=== PATIENT | female | born 1990 ===

== ENCOUNTER 2018-03-01 07:28 | Emergency (ER) | payer OTHER ==
--- NOTE | 2018-03-01 08:07 | UC ---
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 PATIENT DID NOT FALL DOWN. NO LOC. HAS A SLIGHT HEADACHE AT THE SITE OF IMPACT. MILD NECK PAIN. NO NAUSEA, DIZZINESS, VISUAL DISTURBANCES. NO BREAK IN THE SKIN. - History Of Current Complaint Chief Complaint: UCHeadInjury Stated Complaint: HEAD INJURY Time Seen by Provider: 03/01/18 07:44 Hx Obtained From: Patient Hx Last Menstrual Period: 02/22/18 Onset/Duration: Sudden Onset, Lasting Hours, Still Present Severity Currently: Moderate Severity Initially: Mild Pain Intensity: 1 Pain Scale Used: 0-10 Numeric Character: Sharp Aggravating Factor(s): Nothing Alleviating Factor(s): Other - IBUPROFEN Associated Signs And Symptoms: Negative: LOC (Time In Secs./Mins/Hrs), Confusion , Memory Loss, Seizure, Epistaxis, Dental Malocclusion, Nausea, Vomiting - Allergies/Home Medications Allergies/Adverse Reactions: Allergies Allergy/AdvReac Type Severity Reaction Status Date / Time sulfamethoxazole Allergy Rash Verified 03/01/18 07:41 [From Bactrim] trimethoprim [From Bactrim] Allergy Rash Verified 03/01/18 07:41 PMH/Surg Hx/FS Hx/Imm Hx Previously Healthy: Yes - Surgical History Surgical History: Yes Surgery Procedure, Year, and Place: wisdome teeth removed - Family History Known Family History: Positive: Diabetes - Social History Alcohol Use: Rare Substance Use Type: None Smoking Status (MU): Never Smoked Tobacco Review of Systems Constitutional: Negative Skin: Other - CONTUSION LEFT FOREHEAD ENT: Negative Respiratory: Negative Cardiovascular: Negative Gastrointestinal: Negative Neurological: Headache All Other Systems Reviewed And Are Negative: Yes Physical Exam Triage Information Reviewed: Yes Appearance: Well-Appearing, No Pain Distress, Well-Nourished Vital Signs: Initial Vital Signs Temp 98.1 F 03/01/18 07:36 Pulse 60 03/01/18 07:36 Resp 16 03/01/18 07:36 BP 112/66 03/01/18 07:36 Pulse Ox 98 03/01/18 07:36 Vital Signs Reviewed: Yes Eyes: Positive: Conjunctiva Clear, Other: - PERRL, EOMI ENT: Positive: Hearing grossly normal, Pharynx normal, TMs normal Neck: Positive: Supple, Nontender, No Lymphadenopathy Respiratory Exam: Normal Cardiovascular Exam: Normal Abdomen Description: Positive: Soft Musculoskeletal: Positive: No Edema Neurological: Positive: Alert, Muscle Tone Normal, Other: - CN II-XII GROSSLY INTACT BILATERALLY. RAPID ALTERNATING MOVEMENTS INTACT. NEG PRONATOR DRIFT. NEG ROMBERG. 5/5 STRENGTH. HEEL TO HUTCHISON INTACT BILATERALLY. FORWARD TANDEM GAIT INTACT. FINGER TO NOSE INTACT. Psychological: Positive: Age Appropriate Behavior Skin: Positive: Other - CONTUSION LEFT FOREHEAD. Negative: rashes Head Injury Course/Dx - Course Course Of Treatment: DISCUSSED INDICATION FOR CT SCAN TODAY. GIVEN MECHANISM OF INJURY COULD JUSTIFY ORDERING A SCAN. GIVEN PATIENT'S MILD SYMPTOMS AND NORMAL EXAM SHE HAS OPTED TO [facility] AT THIS TIME IN LIEU OF CAREFUL OBSERVATION. SHE WILL GO TO THE ED IF SYMPTOMS WORSEN. NO MORE IBUPROFEN FOR THE FIRST 24 HOURS. - Differential Dx/Diagnosis Provider Diagnoses: HEAD INJURY/SCALP HEMATOMA Discharge - Sign-Out/Discharge Documenting (check all that apply): Patient Departure All imaging exams completed and their final reports reviewed: No Studies - Discharge Plan Condition: Stable Disposition: HOME Patient Education Materials: Head Injury (ED), Scalp Contusion in Adults (ED) Referrals: No Primary Care Phys,NOPCP [Primary Care Provider] - Additional Instructions: YOU DO NOT APPEAR TO BE CONCUSSED AT THIS TIME. OUT OF AN ABUNDANCE OF CAUTION WOULD AVOID IBUPROFEN FOR THE FIRST 24 HOURS. TAKE TYLENOL NEEDED FOR DISCOMFORT. ADVISE MENTAL AND PHYSICAL REST FOR THE NEXT FEW DAYS. GO TO THE ED WITHOUT FAIL IF YOU DEVELOP UNEQUAL PUPILS, VISUAL DISTURBANCE, GAIT INSTABILITY, SPEECH DIFFICULTY, NAUSEA/VOMITING, WORSENING HEADACHE, DIZZINESS, CONFUSION, WEAKNESS OR ANY OTHER CONCERNING SYMPTOMS. CALL THE NUMBER BELOW FOR ASSISTANCE IN ESTABLISHING WITH A PCP An additional resource available to assist in finding the appropriate physician for your health care needs is [facility] ([facility]). You may contact them by calling [phone]. - Billing Disposition and Condition Condition: STABLE Disposition: Home
--- NOTE | 2018-03-01 14:26 | UC ---
- Progress Note Progress Note: I CALLED THE PATIENT TO SEE HOW SHE HAS BEEN DOING OVER THE COURSE OF THE DAY. LEFT A MESSAGE TO CALL BACK IF SHE HAS ANY QUESTIONS OR CONCERNS. - LORI CROSS M.D. Discharge - Sign-Out/Discharge Documenting (check all that apply): Post-Discharge Follow Up All imaging exams completed and their final reports reviewed: No Studies - Discharge Plan Condition: Stable Disposition: HOME Patient Education Materials: Head Injury (ED), Scalp Contusion in Adults (ED) Referrals: No Primary Care Phys,NOPCP [Primary Care Provider] - Additional Instructions: YOU DO NOT APPEAR TO BE CONCUSSED AT THIS TIME. OUT OF AN ABUNDANCE OF CAUTION WOULD AVOID IBUPROFEN FOR THE FIRST 24 HOURS. TAKE TYLENOL NEEDED FOR DISCOMFORT. ADVISE MENTAL AND PHYSICAL REST FOR THE NEXT FEW DAYS. GO TO THE ED WITHOUT FAIL IF YOU DEVELOP UNEQUAL PUPILS, VISUAL DISTURBANCE, GAIT INSTABILITY, SPEECH DIFFICULTY, NAUSEA/VOMITING, WORSENING HEADACHE, DIZZINESS, CONFUSION, WEAKNESS OR ANY OTHER CONCERNING SYMPTOMS. CALL THE NUMBER BELOW FOR ASSISTANCE IN ESTABLISHING WITH A PCP An additional resource available to assist in finding the appropriate physician for your health care needs is the [facility] ([facility]). You may contact them by calling [phone]. - Billing Disposition and Condition Condition: STABLE Disposition: Home
== END 2018-03-01 08:05 | disposition home or self-care (01) ==
LOC: UCEAST 07:28
DX: S00.03XA Contusion of scalp, initial encounter (principal); S09.90XA Unspecified injury of head, initial encounter; W55.12XA Struck by horse, initial encounter; Y93.K9 Activity, other involving animal care; Y92.9 Unspecified place or not applicable; Y99.0 Civilian activity done for income or pay; Z88.2 Allergy status to sulfonamides
CPT/HCPCS: 99201; G0463

== ENCOUNTER 2019-01-31 13:10 | Emergency (ER) | payer BC, OTHER ==
[2019-01-31] MEDS ORDERED: predniSONE TAB* 20 MG PO ONE (15:02)
--- NOTE | 2019-01-31 15:07 | UC ---
Skin Complaint HPI - HPI Summary HPI Summary: 28 yo female with poison PRIMO x 1 week Just on left arm relief with HC cr - History of Current Complaint Chief Complaint: UCRash Time Seen by Provider: 01/31/19 14:56 Stated Complaint: RASH Hx Obtained From: Patient Hx Last Menstrual Period: 01/25/19 Onset/Duration: Gradual Onset, Lasting Days Timing: Constant Onset Severity: Mild Current Severity: Moderate Pain Intensity: 1 Pain Scale Used: 0-10 Numeric Location: Discrete Character: Pruritus, Redness, Raised Aggravating Factor(s): Touch Alleviating Factor(s): OTC Meds Associated Signs & Symptoms: Positive: Rash. Negative: Nausea, Vomiting, Numbness, Thirst, Diaphoresis, Weakness, Pallor, Shivering, Difficulty Breathing , Fever, Chills, Cough, Wheezing, Chest Pain, Hoarseness, Throat Tightening, Lightheadedness, Syncope, Drainage, Bruising, Tenderness, Red Streaks, Joint Swelling - Allergy/Home Medications Allergies/Adverse Reactions: Allergies Allergy/AdvReac Type Severity Reaction Status Date / Time sulfamethoxazole Allergy Rash Verified 01/31/19 13:54 [From Bactrim] trimethoprim [From Bactrim] Allergy Rash Verified 01/31/19 13:54 Home Medications: Home Medications Drospir/Eth Estra/Levomefol Ca [[id number] [id number]] 1 tab PO DAILY [History Confirmed 01/31/19] PMH/Surg Hx/FS Hx/Imm Hx Previously Healthy: Yes - Surgical History Surgical History: Yes Surgery Procedure, Year, and Place: wisdome teeth removed - Family History Known Family History: Positive: Diabetes, Non-Contributory - Social History Alcohol Use: Rare Substance Use Type: None Smoking Status (MU): Never Smoked Tobacco Review of Systems All Other Systems Reviewed And Are Negative: Yes Constitutional: Positive: Negative Skin: Positive: Rash Eyes: Positive: Negative ENT: Positive: Negative Respiratory: Positive: Negative Cardiovascular: Positive: Negative Gastrointestinal: Positive: Negative Genitourinary: Positive: Negative Motor: Positive: Negative Neurovascular: Positive: Negative Musculoskeletal: Positive: Negative Neurological: Positive: Negative Psychological: Positive: Negative Physical Exam Triage Information Reviewed: Yes Appearance: Well-Appearing, No Pain Distress, Well-Nourished Vital Signs: Initial Vital Signs Temp 98.8 F 01/31/19 13:50 Pulse 74 01/31/19 13:50 Resp 16 01/31/19 13:50 BP 114/73 01/31/19 13:50 Pulse Ox 100 01/31/19 13:50 Vital Signs Reviewed: Yes Eyes: Positive: Conjunctiva Clear ENT: Positive: Hearing grossly normal. Negative: Nasal congestion, Nasal drainage, Trismus, Muffled voice, Hoarse voice Neck: Positive: Supple, Nontender Respiratory: Positive: Lungs clear, Normal breath sounds, No respiratory distress Cardiovascular: Positive: RRR, No Murmur Musculoskeletal: Positive: ROM Intact, No Edema Neurological: Positive: Alert Psychological Exam: Normal Skin Exam: Normal Images Front/Back of Body, Lg ([place]): 1 - extensive rash c/w contact dermatitis Course/Dx - Course Course Of Treatment: given option of topical steroid vs prednisone vs oral steriod - Diagnoses Provider Diagnosis: Contact dermatitis Discharge ED - Sign-Out/Discharge Documenting (check all that apply): Patient Departure All imaging exams completed and their final reports reviewed: No Studies - Discharge Plan Condition: Stable Disposition: HOME Patient Education Materials: Contact Dermatitis (ED) Referrals: No Primary Care Phys,NOPCP [Primary Care Provider] - - Billing Disposition and Condition Condition: STABLE Disposition: Home
== END 2019-01-31 15:21 | disposition home or self-care (01) ==
LOC: UCEAST 13:10
DX: L25.9 Unspecified contact dermatitis, unspecified cause (principal); Z88.2 Allergy status to sulfonamides
CPT/HCPCS: 99212; G0463; J7512

== ENCOUNTER 2019-03-01 11:03 | Emergency (ER) | payer BC ==
--- NOTE | 2019-03-01 11:51 | UC ---
Respiratory Complaint HPI - HPI Summary HPI Summary: Patient is a healthy 28-year-old female here with sinus congestion. Patient's had 3 days of frontal and maxillary sinus congestion. Patient has bilateral ear congestion as well. Patient has no runny nose, fever, sore throat, vomiting , diarrhea, rash. Patient does have one sick contact with her symptoms. Patient has seasonal allergies but typically only gets them in the spring. Patient does not take any daily allergy medicines and has not tried any medicines for this. Medications reviewed - History of Current Complaint Chief Complaint: UCHeadache Stated Complaint: HEADACHE / EAR PAIN Time Seen by Provider: 03/01/19 11:35 Hx Obtained From: Patient Hx Last Menstrual Period: 1 week ago Pain Intensity: 3 - Allergies/Home Medications Allergies/Adverse Reactions: Allergies Allergy/AdvReac Type Severity Reaction Status Date / Time sulfamethoxazole Allergy Rash Verified 03/01/19 11:21 [From Bactrim] trimethoprim [From Bactrim] Allergy Rash Verified 03/01/19 11:21 Home Medications: Home Medications Ibuprofen TAB* [Advil TAB*] 400 mg PO Q6H PRN 03/01/19 [History Confirmed ] PMH/Surg Hx/FS Hx/Imm Hx Previously Healthy: Yes - Surgical History Surgical History: Yes Surgery Procedure, Year, and Place: wisdom teeth removed - Family History Known Family History: Positive: Diabetes, Non-Contributory - Social History Alcohol Use: Rare Substance Use Type: None Smoking Status (MU): Never Smoked Tobacco Review of Systems All Other Systems Reviewed And Are Negative: Yes Constitutional: Negative: Fever, Chills Eyes: Negative: Drainage, Photophobia ENT: Positive: Ear Ache, Sinus Congestion, Sinus Pain/Tenderness. Negative: Sore Throat, Nasal Discharge Respiratory: Negative: Shortness Of Breath, Cough Cardiovascular: Negative: Chest Pain Gastrointestinal: Negative: Abdominal Pain, Vomiting, Diarrhea Physical Exam - Summary Physical Exam Summary: Vital Signs Reviewed: Yes A+Ox3, no distress Eyes: Conjunctiva Clear, PERRL. EOM intact and full ENT: Frontal and maxillary sinus tenderness. Patient with stuffy nose but no discharge. Bilateral TMs with fluid present but no erythema or bulging. Neck: Positive: Supple Respiratory: Positive: No respiratory distress, No accessory muscle use + CTA throughout no w/r Cardiovascular: RRR nl s1, s2 no m/r CBT <2 sec abd soft + BS nt/nd no guarding, no distension Musculoskeletal Exam: MEYER x 4 without difficulty Strength Intact, ROM Intact Neurological: Positive: Alert, + sensation throughout Psychological: Positive: Normal Response To Family Skin: no rash, no ecchymosis Vital Signs: Initial Vital Signs Temp 98 F 03/01/19 11:17 Pulse 71 03/01/19 11:17 Resp 16 03/01/19 11:17 BP 109/63 03/01/19 11:17 Pulse Ox 99 03/01/19 11:17 Respiratory Course/Dx - Course Course Of Treatment: Patient is here with sinus congestion. Patient's had symptoms for 3 days. Patient is likely suffering a viral syndrome versus allergic congestion. Patient was started on Flonase and a daily allergy medicine. Patient was educated on sinus congestion management. - Differential Dx/Diagnosis Provider Diagnosis: Sinus congestion Discharge ED - Sign-Out/Discharge Documenting (check all that apply): Patient Departure All imaging exams completed and their final reports reviewed: Yes - Discharge Plan Condition: Stable Disposition: HOME Patient Education Materials: Sinusitis (ED) Referrals: No Primary Care Phys,NOPCP [Primary Care Provider] - Additional Instructions: Please start taking a daily allergy medicine Please use Flonase twice a day, one spray in each nostril Please use steam and a Marjorie pot like we discussed today Please return as you have high fevers, difficulty breathing, or any other concerning symptoms - Billing Disposition and Condition Condition: STABLE Disposition: Home
== END 2019-03-01 12:02 | disposition home or self-care (01) ==
LOC: UCEAST 11:03
DX: R09.81 Nasal congestion (principal); Z88.2 Allergy status to sulfonamides
CPT/HCPCS: 99211; G0463